=== PATIENT | male | born 1980 | race Caucasian/White ===

== ENCOUNTER 2021-08-10 10:54 | Outpatient (CLI) | payer OTHER, SELFPAY ==
--- NOTE | 2021-08-10 12:00 | NEURO_ITS ---
Impression: # Complains of numbness of hands. # Bilateral moderate Carpal Tunnel Syndrome. # No ulnar neuropathy. # Subtle abnormality on needle/EMG exam. Nerve Conduction Studies Anti Sensory Summary Table Stim Site NR Peak (ms) P-T Amp (?V) Site1 Site2 Delta-P (ms) Dist (cm) Adrien (m/s) Left Median Anti Sensory (2-3nd Digit) Wrist 4.7 19.8 Wrist 2-3nd Digit 4.7 14.0 30 Wrist 4.5 25.7 Wrist 2-3nd Digit 4.7 14.0 30 Right Median Anti Sensory (2-3nd Digit) Wrist 6.5 30.2 Wrist 2-3nd Digit 6.5 14.0 22 Wrist 6.8 30.8 Wrist 2-3nd Digit 6.5 14.0 22 Left Radial Anti Sensory (Base 1st Digit) Wrist 1.8 17.4 Wrist Base 1st Digit 1.8 0.0 Right Radial Anti Sensory (Base 1st Digit) Wrist 2.3 9.6 Wrist Base 1st Digit 2.3 0.0 Left Ulnar Anti Sensory (5th Digit) Wrist 2.4 32.5 Wrist 5th Digit 2.4 14.0 58 Right Ulnar Anti Sensory (5th Digit) Wrist 2.4 56.5 Wrist 5th Digit 2.4 14.0 58 Motor Summary Table Stim Site NR Onset (ms) O-P Amp (mV) Site1 Site2 Delta-0 (ms) Dist (cm) Adrien (m/s) Left Median Motor (Abd Poll Brev) Wrist 5.2 0.8 Elbow Wrist 4.8 28.0 58 Elbow 10.0 0.7 Right Median Motor Run #2 (Abd Poll Brev) Wrist 5.9 0.8 Elbow Wrist 5.4 28.0 52 Elbow 11.3 1.1 Left Ulnar Motor (Abd Dig Minimi) Wrist 2.3 6.8 A Elbow Wrist 5.0 30.0 60 A Elbow 7.3 5.8 Right Ulnar Motor (Abd Dig Minimi) Wrist 2.2 10.4 A Elbow Wrist 5.1 30.0 59 A Elbow 7.3 8.7 F Wave Studies NR F-Lat (ms) L-R F-Lat (ms) Left Median (Mrkrs) (Abd Poll Brev) 30.70 0.00 Right Median (Mrkrs) (Abd Poll Brev) 30.70 0.00 Left Ulnar (Mrkrs) (Abd Dig Min) 27.68 1.04 Right Ulnar (Mrkrs) (Abd Dig Min) 26.64 1.04 EMG Side Muscle Nerve Root Ins Act Fibs Amp Dur Recrt Comment Right 1stDorInt Ulnar C8-T1 Nml Nml Nml Nml Nml Right Ext Indicis Radial (Post Int) C7-8 Nml Nml Nml Nml Nml Right Ext Digitorum Radial (Post Int) C7-8 Nml Nml Nml Nml Nml Right BrachioRad Radial C5-6 Nml Nml Nml Nml Nml Right PronatorTeres Median C6-7 Nml Nml Nml Nml Nml Right Abd Poll Brev Median C8-T1 Nml Nml Nml >12ms Reduced Left 1stDorInt Ulnar C8-T1 Nml Nml Nml Nml Nml Left Ext Indicis Radial (Post Int) C7-8 Nml Nml Nml Nml Nml Left Ext Digitorum Radial (Post Int) C7-8 Nml Nml Nml Nml Nml Left BrachioRad Radial C5-6 Nml Nml Nml Nml Nml Left PronatorTeres Median C6-7 Nml Nml Nml Nml Nml Left Abd Poll Brev Median C8-T1 Nml Nml Nml >12ms Reduced MTDD
== END 2021-08-10 10:55 | disposition home or self-care (01) ==
PROVIDERS: PCP Internal Medicine; Visit Provider Internal Medicine
DX: R20.0 Anesthesia of skin (principal); G56.03 Carpal tunnel syndrome, bilateral upper limbs
CPT/HCPCS: 95886; 95911

== ENCOUNTER 2023-08-01 11:47 | Outpatient (CLI) | payer OTHER, SELFPAY ==
[2023-08-01 12:59] LABS: Basophils Absolute Auto 0.1 K/mm3 (0.0-0.1); Basophils Percent Auto 0.9 % (0.2-1.2); Eosinophils Absolute Auto 0.1 K/mm3 (0-0.3); Eosinophils Percent Auto 1.5 % (0-4.4); Hematocrit 47.5 % (42.0-52.0); Hemoglobin 15.6 g/dL (14.0-18.0); Immature Granulocyte Absolute 0.01 K/mm3 (0.00-0.031); Immature Granulocyte Percent A 0.1 % (0-0.5); Lymphocytes Absolute Auto 1.51 K/mm3 (0.9-3.2); Lymphocytes Percent Auto 21.9 % (18.3-44.2); Mean Corpuscular HGB Conc 32.8 g/dl (32-36); Mean Corpuscular Hemoglobin 29.4 pg (26-34); Mean Corpuscular Volume 89.5 fl (80-100); Mean Platelet Volume 9.1 fl (7.4-10.4); Monocytes Absolute Auto 0.9 K/mm3 (0.1-0.6); Monocytes Percent Auto 12.3 % (2.6-8.5); Neutrophils Absolute Auto 4.4 K/mm3 (1.3-6.7); Neutrophils Percent Auto 63.3 % (45.5-73.1); Platelet Count Result 276 k/mm3 (150-375); Red Blood Count 5.31 M/mm3 (4.6-6.20); Red Cell Distribution Width 12.5 % (11.5-14.5); White Blood Count 6.9 K/mm3 (4.5-10.0)
[2023-08-01 13:09] LABS: Alanine Aminotransferase 21 U/L (6-50); Albumin Level 4.2 g/dL (3.5-5.1); Alkaline Phosphatase 53 U/L (38-126); Anion Gap 4 mmol/L (8-16); Aspartate Amino Transferase 21 U/L (17-59); Bilirubin,Total 0.8 mg/dL (0.2-1.3); Blood Urea Nitrogen 9 mg/dL (9-20); Calcium 8.9 mg/dL (8.4-10.2); Carbon Dioxide 31 mmol/L (22-30); Chloride 103 mmol/L (98-107); Cholesterol 170 mg/dL (0-200); Estimated Glomerular Filt Rate > 60; Glucose 107 mg/dL (65-110); HDL Direct 65 mg/dL; Sodium 138 mmol/L (137-145); Triglycerides 97 mg/dL (<150)
[2023-08-01 13:19] LABS: LDL Cholesterol Direct 92 mg/dL
[2023-08-01 13:20] LABS: Hemoglobin A1C 5.6 % (<5.7)
[2023-08-01 13:39] LABS: Thyroid Stimulating Hormone 0.898 uIU/mL (0.465-4.680)
[2023-08-01 16:16] LABS: Prostate Specific Antigen 1.7 ng/mL (< OR = 4.0)
== END 2023-08-01 11:48 | disposition home or self-care (01) ==
PROVIDERS: PCP Nurse Practitioner Family; Visit Provider Nurse Practitioner Family
DX: Z13.0 Encounter for screening for diseases of the blood and blood-forming organs and certain disorders involving the immune mechanism (principal); Z13.6 Encounter for screening for cardiovascular disorders; Z13.29 Encounter for screening for other suspected endocrine disorder; R73.01 Impaired fasting glucose; Z12.5 Encounter for screening for malignant neoplasm of prostate; Z00.00 Encounter for general adult medical examination without abnormal findings
CPT/HCPCS: 36415; 80053; 80061; 83036; 84153; 84443; 85025; G0103